=== PATIENT | male | born 1960 | race Caucasian/White ===

== ENCOUNTER 2022-08-04 00:15 | Inpatient (IN) | payer MEDICARE, OTHER ==
[~2022-08-04] VITALS: Ht 175.3 cm; Wt 102.1 kg
[2022-08-04] MEDS ORDERED: NOREPINEPHRINE BITARTRATE 8 MG in IV NORMAL SALINE 242 ML IV PRN (00:30)
[2022-08-04] MEDS ORDERED: PANTOPRAZOLE SODIUM 40 MG VIAL IV ONE (00:30)
[2022-08-04] MEDS ORDERED: IV NORMAL SALINE 500 ML BAG IV ONE (00:30)
[2022-08-04] MEDS ORDERED: PANTOPRAZOLE SODIUM IV 80 MG in IV DEXTROSE 5% 100 ML IV ONE (00:30)
[2022-08-04 00:57] LABS: HEMATOCRIT 28.6 % (36.7-47.1); MEAN CORPUSCULAR HEMOGLOBIN 31.7 uug (23.8-33.4); MEAN CORPUSCULAR VOLUME 94.3 fL (73.0-96.2); PLATELET COUNT (AUTO) 250 K/uL (152-348)
[2022-08-04 01:08] LABS: ETHANOL < 3 MG/DL (0-0)
[2022-08-04] MEDS ORDERED: PANTOPRAZOLE SODIUM 40 MG VIAL ONE ×2 (01:12→01:47)
[2022-08-04] MEDS ORDERED: NOREPINEPHRINE BITARTRATE 4 MG/4 ML VIAL IV ONE (01:13)
[2022-08-04 01:15] LABS: ALANINE AMINOTRANSFERASE 29 U/L (16-63); ALKALINE PHOSPHATASE 56 U/L (50-136); ASPARTATE AMINOTRANSFERASE 20 U/L (15-37); BILIRUBIN,DIRECT 0.1 mg/dL (0.0-0.2); BILIRUBIN,TOTAL 0.4 mg/dL (0.2-1.0); CARBON DIOXIDE 27 mmol/L (21-32); CHLORIDE 101 mmol/L (98-107); GLUCOSE 205 mg/dL (74-106); POTASSIUM 4.3 mmol/L (3.5-5.1); TOTAL PROTEIN, SERUM 5.9 g/dL (6.4-8.2); UREA NITROGEN, BLOOD 60 mg/dL (7-18)
[2022-08-04 01:19] LABS: CREATININE 8.2 mg/dL (0.6-1.3)
--- NOTE | 2022-08-04 01:19 | NUR ---
[phone] - Katlin - son , [phone] - Cori -
[2022-08-04 01:48] LABS: *OCCULT BLOOD STOOL POSITIVE (NEGATIVE)
[2022-08-04] MEDS ORDERED: ASPI81TA31 PO (01:48)
[2022-08-04] MEDS ORDERED: HYDR-4075 PO (01:48)
[2022-08-04] MEDS ORDERED: CARV3.122 PO (01:48)
[2022-08-04] MEDS ORDERED: PREG50CA PO (01:48)
[2022-08-04] MEDS ORDERED: GLIM1TAB18 PO (01:48)
[2022-08-04] MEDS ORDERED: ATOR10TA PO (01:48)
[2022-08-04] MEDS ORDERED: ACAR25TA2 PO (01:48)
--- NOTE | 2022-08-04 01:58 | NUR ---
Levo drip on hold. BP: 106/60
[2022-08-04] MEDS ORDERED: LINEZOLID 600 MG/300 ML PIGGYBACK IV ONE (02:13)
[2022-08-04] MEDS ORDERED: NEOMY/BACITRA/POLYMYXIN B OINT UD PACKET TP ONE (02:15)
[2022-08-04] MEDS ORDERED: LINEZOLID IV 600 MG in PREMIXED 1 EACH IV ONE (02:15)
--- NOTE | 2022-08-04 02:20 | NUR ---
Wound care done
--- NOTE | 2022-08-04 02:23 | NUR ---
Called [facility] for panal call. Dr. Shelley Ortega oncology coordinator.
--- NOTE | 2022-08-04 02:40 | NUR ---
Patient has been accepted by Shelley Ortega NP
[2022-08-04] MEDS ORDERED: IV NORMAL SALINE 500 ML IV ONE (02:45)
--- NOTE | 2022-08-04 02:45 | NUR ---
Called for bed. Patient will be transfered to [facility] room 314
--- NOTE | 2022-08-04 02:49 | NUR ---
Levo drip on hold BP: 119/55, HR: 88
--- NOTE | 2022-08-04 02:53 | NUR ---
Called patient's son Katlin, made aware that patient will be admitted
[2022-08-04] MEDS ORDERED: ACETAMINOPHEN 325 MG TABLET PO PRN (03:00)
[2022-08-04] MEDS ORDERED: ONDANSETRON 4 MG/2 ML VIAL IV PRN (03:00)
--- NOTE | 2022-08-04 03:08 | NUR ---
Called 3rd floor to give report. spoke with Vanita RHODESsupercharger mechanic nurse, Brandt RHODES will call back
--- NOTE | 2022-08-04 03:16 | NUR ---
report given to Brandt RHODES
[2022-08-04 03:35] VITALS: BP 97/55
--- NOTE | 2022-08-04 03:46 | NUR ---
Pt. admitted to [facility] ROOM 314 , under care of Shannon CYBER THREAT ANALYST [employer] List completed Brandt RN aware of patient's arrival
[2022-08-04 05:44] LABS: HEMATOCRIT 25.1 % (36.7-47.1); MEAN CORPUSCULAR HEMOGLOBIN 31.8 uug (23.8-33.4); MEAN CORPUSCULAR VOLUME 93.7 fL (73.0-96.2); PLATELET COUNT (AUTO) 219 K/uL (152-348)
[2022-08-04 06:04] LABS: BILIRUBIN,TOTAL 0.3 mg/dL (0.2-1.0); MAGNESIUM 2.1 mg/dL (1.8-2.4); POTASSIUM 4.1 mmol/L (3.5-5.1); TOTAL PROTEIN, SERUM 5.5 g/dL (6.4-8.2)
[2022-08-04 06:09] LABS: CREATININE 8.1 mg/dL (0.6-1.3)
[2022-08-04 06:12] LABS: THYROID STIMULATING HORMONE 1.323 mIU/mL (0.358-3.740)
[2022-08-04 07:34] VITALS: BP 94/51
[2022-08-04] MEDS: PANTOPRAZOLE SODIUM 40 MG VIAL IV SCH ×2 (08:17→21:08)
--- NOTE | 2022-08-04 10:43 | NUR ---
WOUND CARE CONSULT: PT PRESENTS WITH SURGICAL WOUNDS TO RT FOOT AND OPEN WOUND TO LEFT GREAT TOE, PRESENT ON ADMISSION. DR MAGDALENO CALLED FOR DPM CONSULT. DISCUSSED SKIN PROTECTION WITH NURSING STAFF. IN AGREEMENT WITH PLAN OF CARE. Addendum: 08/04/22 at 1046 by KELSEY DOMÍNGUEZ RN THERE ARE DARK RED/PURPLE SPOTS ON LOWER EXTREMITIES AND ON RT HAND, PRESENT ON ADMISSION, UNKNOWN ETIOLOGY. RN TO DISCUSS WITH PMD.
[2022-08-04] MEDS ORDERED: CARV25TA2 PO (11:48)
[2022-08-04] MEDS ORDERED: PANT40TA49 PO (11:48)
[2022-08-04] MEDS ORDERED: ATOR20TA PO (11:48)
[2022-08-04] MEDS ORDERED: ERGO500040 PO (11:48)
[2022-08-04] MEDS ORDERED: GLIM4TAB37 PO (11:48)
[2022-08-04] MEDS ORDERED: HYDR-4077 PO (11:48)
[2022-08-04] MEDS ORDERED: ACAR25TA PO (11:50)
[2022-08-04 11:57] VITALS: BP 117/54
[2022-08-04] MEDS ORDERED: DEXTROSE 50% 50 ML DISP.SYRIN IV PRN (12:00)
[2022-08-04] MEDS: BLOOD SUGAR DIAGNOSTIC 1 EACH STRIP VI SCH ×3 (12:00→21:09)
[2022-08-04] MEDS: LINEZOLID IV 600 MG in PREMIXED 1 EACH IV SCH ×2 (12:00→13:46)
--- NOTE | 2022-08-04 14:00 | NUR ---
Patient is refusing ATB. made aware, changed order to Vanco. Per patient, he is getting it every after dialysis. dialysis schedule is . Followed up with Nephro consult, per MD, he will see patient today.
[2022-08-04 15:57] VITALS: BP 115/56
--- NOTE | 2022-08-04 19:17 | NUR ---
Pt. stayed stable during the shift and no significant changes noted. Family visit noted.
[2022-08-04 20:00] VITALS: BP 127/58
[2022-08-04] MEDS: INSULIN REGULAR, HUMAN 300 UNIT/3 ML VIAL SQ PRN (21:09)
[2022-08-04] MEDS ORDERED: SIMETHICONE 80 MG TAB.CHEW PO PRN (23:45)
[2022-08-04] MEDS ORDERED: LIDOCAINE/PRILOCAINE 5 GM CREAM.GM. TP ONE (23:45)
[2022-08-05] VITALS: BP 123/67
[2022-08-05] MEDS: VANCOMYCIN IV 500 MG in IV DEXTROSE 5% 100 ML IV PRN (00:57)
[2022-08-05] MEDS: HYDROCODONE/APAP 10-325 MG TABLET PO PRN (03:40)
[2022-08-05 04:00] VITALS: BP 97/62
--- NOTE | 2022-08-05 06:21 | NUR ---
pt rested well in between care; pt c/o pain and medicated with Strang; pt had dialysis and 2 liters out; continue to monitor; continue plan of care.
[2022-08-05 07:35] VITALS: BP 92/42
[2022-08-05 07:50] LABS: HEMATOCRIT 24.7 % (36.7-47.1); MEAN CORPUSCULAR HEMOGLOBIN 32.3 uug (23.8-33.4); MEAN CORPUSCULAR VOLUME 93.7 fL (73.0-96.2); PLATELET COUNT (AUTO) 190 K/uL (152-348)
[2022-08-05] MEDS: PANTOPRAZOLE SODIUM 40 MG VIAL IV SCH ×2 (08:09→20:30)
[2022-08-05] MEDS: BLOOD SUGAR DIAGNOSTIC 1 EACH STRIP VI SCH ×4 (08:11→21:02)
[2022-08-05 08:16] LABS: CREATININE 6.7 mg/dL (0.6-1.3); MAGNESIUM 1.9 mg/dL (1.8-2.4); PHOSPHOROUS 4.3 mg/dL (2.5-4.9); POTASSIUM 3.5 mmol/L (3.5-5.1)
--- NOTE | 2022-08-05 09:10 | NUR ---
Patient wanting to be transferred to [facility] because patient states his case is better known there. Will relay information to patient case manager and doctor.
--- NOTE | 2022-08-05 09:57 | NUR ---
Patient's blood pressure at 60/33 after doing Orthostatic. Notified Dr. Solano. IV hydration provided. Will recheck patient's vitals.
--- NOTE | 2022-08-05 10:15 | NUR ---
Patient to be transferred to [facility] awaiting bed availability.
[2022-08-05 11:35] VITALS: BP 104/56
[2022-08-05 15:16] LABS: *BILIRUBIN,URIN 1+ (NEGATIVE); *BLOOD, URINE 3+ (NEGATIVE); *CLARITY,URINE CLEAR (CLEAR); *COLOR,URINE YELLOW (YELLOW); *KETONES,URINE TRACE (NEGATIVE); *UROBILINOGEN,URINE 0.2 E.U./dl (NORMAL); LEUKOCYTE ESTERASE ,URINE 1+ (NEGATIVE); NITRITE, URINE NEGATIVE (NEGATIVE); UGLUCOSE NEGATIVE (NEGATIVE)
[2022-08-05 15:41] VITALS: BP 94/48
--- NOTE | 2022-08-05 17:08 | NUR ---
Patient no longer to be transferred. [facility] EVS MANAGER spoke to patient's doctor and agreed to have patient stay. Patient to have skin biopsy performed tomorrow morning.
[2022-08-05] MEDS: CHOLESTYRAMINE/SUCROSE 4 GM PACKET PO SCH ×3 (17:11→21:00)
--- NOTE | 2022-08-05 17:50 | NUR ---
Patient downgraded to Tele status.
[2022-08-05] MEDS ORDERED: DIPHENOXYLATE HCL/ATROP SULF TABLET PO PRN (18:15)
[2022-08-05 20:00] VITALS: BP 121/67
[2022-08-05] MEDS: INSULIN REGULAR, HUMAN 300 UNIT/3 ML VIAL SQ PRN (21:02)
[2022-08-05 22:55] LABS: RBC,URINE TNTC /HPF (0-3)
[2022-08-05 22:56] LABS: BACTERIA,URINE FEW /HPF (NONE SEEN); COARSE GRANULAR CASTS,URINE FEW /LPF; SQUAMOUS EPITHELIAL CELL,UR MANY /HPF (NONE SEEN)
[2022-08-06] VITALS: BP 118/68
[2022-08-06 04:00] VITALS: BP 95/45
[2022-08-06 06:07] LABS: HEPATITIS B SURFACE AG Negative (Negative)
[2022-08-06] MEDS: BLOOD SUGAR DIAGNOSTIC 1 EACH STRIP VI SCH ×4 (07:11→20:51)
--- NOTE | 2022-08-06 07:30 | NUR ---
Received pt. alert and oriented. Resting in bed. No c/o nausea and vomiting. Orthostatic blood pressure WNL. SR on monitor. Addendum: 08/06/22 at 1447 by OUMOU HAYES RN Error
[2022-08-06 07:34] LABS: MAGNESIUM 1.8 mg/dL (1.8-2.4); POTASSIUM 3.8 mmol/L (3.5-5.1)
--- NOTE | 2022-08-06 08:00 | NUR ---
RECEIVED PATIENT IN BED AWAKE ALERT AND ORIENTED X3, DENIES CHEST PAIN OR RESPIRATORY DISTRESS. AWAITING HEMODIALYSIS
[2022-08-06 09:06] LABS: CREATININE 7.8 mg/dL (0.6-1.3)
[2022-08-06] MEDS: PANTOPRAZOLE SODIUM 40 MG VIAL IV SCH ×2 (09:17→20:42)
[2022-08-06] MEDS: CHOLESTYRAMINE/SUCROSE 4 GM PACKET PO SCH ×2 (09:23→21:03)
[2022-08-06 09:39] LABS: HEMATOCRIT 26.5 % (36.7-47.1); MEAN CORPUSCULAR HEMOGLOBIN 33.2 uug (23.8-33.4); MEAN CORPUSCULAR VOLUME 94.7 fL (73.0-96.2); PLATELET COUNT (AUTO) 245 K/uL (152-348)
--- NOTE | 2022-08-06 10:00 | NUR ---
Seen by hospitalist and plan to discharge home and follow up with PC Addendum: 08/06/22 at 1450 by OUMOU HAYES RN Error
--- NOTE | 2022-08-06 10:30 | NUR ---
HOSPITALIST DARIO SAUER IN AND DID SKIN BIOPSY LEFT INNER THIGH AND SENT FOR CYTOLOGY
[2022-08-06 11:36] VITALS: BP 115/68
--- NOTE | 2022-08-06 14:00 | NUR ---
HEMODIALYSIS STARTED AT BEDSIDE. CLOSELY MONITORED
[2022-08-06] MEDS ORDERED: LIDOCAINE/PRILOCAINE 5 GM CREAM.GM. TP ONE (14:30)
--- NOTE | 2022-08-06 14:43 | NUR ---
pt. was discharged home and noted to be stable upon the discharge. Will follow up with Primary care in one to two weeks. Addendum: 08/06/22 at 1449 by OUMOU HAYES RN Error
[2022-08-06] MEDS: THERAHONEY GEL 1.5 OZ TUBE TOP SCH (15:36)
[2022-08-06 15:46] VITALS: BP 95/56
[2022-08-06] MEDS ORDERED: VANCOMYCIN IV 500 MG in IV DEXTROSE 5% 100 ML IV ONE (16:00)
--- NOTE | 2022-08-06 16:23 | NUR ---
TOLERATING HD FAIRLY WELL, ST 118 ON MONITOR. VANCOMYCIN IV GIVEN WITH HD
--- NOTE | 2022-08-06 17:25 | NUR ---
HEMODIALYSIS COMPLETED REMOVED 1.5 L OF FLUID
[2022-08-06] MEDS: VANCOMYCIN IV 500 MG in IV DEXTROSE 5% 100 ML IV PRN (17:30)
[2022-08-06] MEDS ORDERED: VANCOMYCIN IV 1,000 MG in IV DEXTROSE 5% 250 ML IV ONE (18:00)
[2022-08-06 20:00] VITALS: BP 111/61
[2022-08-07] MEDS: HYDROCODONE/APAP 10-325 MG TABLET PO PRN (01:29)
[2022-08-07 01:30] VITALS: BP 109/63
[2022-08-07] MEDS: BLOOD SUGAR DIAGNOSTIC 1 EACH STRIP VI SCH ×2 (06:40→11:56)
--- NOTE | 2022-08-07 06:55 | NUR ---
PATIENT RESTED INTERMITTENTLY IN THE CHAIR AND BED THROUGHOUT THE NIGHT. NO DISTRESS NOTED AT THIS TIME. ON ROOM AIR. SR ON TELE MONITOR, HR 100. RIGHT AC INTACT AND PATENT. NO SIGNS OF DIABETIC CRISIS NOTED. ADMINISTERED PAIN MEDICATION AT 0130. PAIN GOAL MET. SAFETY AND COMFORT MEASURE MAINTAINED.
[2022-08-07 07:06] LABS: COMPLEMENT, C3 SERUM 115 mg/dL (82-167); COMPLEMENT, C4 SERUM 30 mg/dL (12-38)
--- NOTE | 2022-08-07 07:20 | NUR ---
RESTING COMFORTABLY IN BED NO SS OF PAIN OR DISTRESS ON RA. ST ON MONITOR 105. CONTINUE TELE MONITORING/GOING HOME
[2022-08-07 08:06] LABS: *ANTI-SCLERODERMA-70 AB <0.2 AI (0.0-0.9); *SJOGREN'S ANTI-SS-A <0.2 AI (0.0-0.9); *SJOGREN'S ANTI-SS-B <0.2 AI (0.0-0.9); *SMITH ANTIBODIES <0.2 AI (0.0-0.9); ANTI-DNA(DS) AB, QN <1 IU/mL (0-9)
[2022-08-07] MEDS: PANTOPRAZOLE SODIUM 40 MG VIAL IV SCH (08:25)
[2022-08-07] MEDS: CHOLESTYRAMINE/SUCROSE 4 GM PACKET PO SCH (08:25)
[2022-08-07] MEDS: THERAHONEY GEL 1.5 OZ TUBE TOP SCH (08:25)
[2022-08-07 09:13] LABS: HEMATOCRIT 28.5 % (36.7-47.1); MEAN CORPUSCULAR HEMOGLOBIN 32.1 uug (23.8-33.4); PLATELET COUNT (AUTO) 278 K/uL (152-348)
[2022-08-07 09:57] LABS: CREATININE 7.1 mg/dL (0.6-1.3); MAGNESIUM 2.1 mg/dL (1.8-2.4); POTASSIUM 3.4 mmol/L (3.5-5.1)
[2022-08-07 10:34] LABS: PHOSPHOROUS 6.1 mg/dL (2.5-4.9)
[2022-08-07 11:28] VITALS: BP 103/62
--- NOTE | 2022-08-07 11:56 | NUR ---
blood sugar 136 via finger stick, refused sliding scale
--- NOTE | 2022-08-07 12:56 | NUR ---
HOSPITALIST DR SAUER IN [facility] AWARE OF MRSA LEFT FOOT AND PATIENT WANTS TO GO HOME.
[2022-08-07] MEDS ORDERED: CARVEDILOL 25 MG TABLET PO SCH (13:15)
[2022-08-07 13:46] VITALS: BP 103/62
--- NOTE | 2022-08-07 14:54 | NUR ---
DR SAUER NOTIFIED AND SAID PATIENT OKAY TO GO AND FOLLOW-UP OWN PHARMACIST FOR HOME MEDICATIONS. PATIENT REFUSED PICTURE TAKING AND DRESSING CHANGED OF WOUND. "DOCTOR CHANGED DRESSING YESTERDAY AND MY NURSE WILL SEE ME TOMORROW" DISCHARGE FOLLOW-UP INSTRUCTION GIVEN
[2022-08-07] MEDS ORDERED: PANTOPRAZOLE SODIUM 40 MG TABLET.DR PO SCH (17:00)
[2022-08-07] MEDS ORDERED: VANC500F2 IV (17:27)
[2022-08-07] MEDS ORDERED: ACARBOSE 50 MG TABLET PO SCH (18:00)
[2022-08-07] MEDS ORDERED: [UNRECOGNIZED DRUG - OTHER] PO SCH (18:00)
[2022-08-07] MEDS ORDERED: ACARBOSE 25 MG PO SCH (18:00)
--- NOTE | 2022-08-07 18:08 | NUR ---
FOLLOWED-UP PATIENT REGARDING DISCHARGED MEDICATION AND VANCOMYCIN TO BE GIVEN ON DIALYSIS DAY. PATIENT ABLE TO FOLLOW INSTRUCTION.
[2022-08-07] MEDS ORDERED: ATORVASTATIN 20 MG TABLET PO SCH (21:00)
[2022-08-07] MEDS ORDERED: hydrALAZINE HCL 50 MG TABLET PO SCH (21:00)
[2022-08-08] MEDS ORDERED: PANTOPRAZOLE SODIUM 40 MG TABLET.DR PO SCH (07:00)
[2022-08-08] MEDS ORDERED: GLIMEPIRIDE 4 MG TABLET PO SCH (08:00)
[2022-08-08] MEDS ORDERED: ASPIRIN EC 81 MG TABLET.DR PO SCH (09:00)
== END 2022-08-07 15:00 | disposition home or self-care (01) | DRG 871 ==
LOC: ER 00:20 → TELE-TD3 02:40 → TELE3 08-05 17:06
PROVIDERS: ADMIT Nurse Practitioner Acute Care; ATTEND Nurse Practitioner Acute Care
PROC: 5A1D70Z Performance of Urinary Filtration, Intermittent, Less than 6 Hours Per Day (ICD-10-PCS; 2022-08-04)
PROC: 0HBHXZX Excision of Right Upper Leg Skin, External Approach, Diagnostic (ICD-10-PCS; principal; 2022-08-06)
PROC: 0HBJXZZ Excision of Left Upper Leg Skin, External Approach (ICD-10-PCS; 2022-08-06)
DX: A41.9 Sepsis, unspecified organism (principal); I50.31 Acute diastolic (congestive) heart failure; N18.6 End stage renal disease; K92.2 Gastrointestinal hemorrhage, unspecified; D62 Acute posthemorrhagic anemia; N39.0 Urinary tract infection, site not specified; M86.8X7 Other osteomyelitis, ankle and foot; E11.22 Type 2 diabetes mellitus with diabetic chronic kidney disease; Z99.2 Dependence on renal dialysis; Z79.84 Long term (current) use of oral hypoglycemic drugs; I25.10 Atherosclerotic heart disease of native coronary artery without angina pectoris; Z95.5 Presence of coronary angioplasty implant and graft; E88.09 Other disorders of plasma-protein metabolism, not elsewhere classified; Z20.822 Contact with and (suspected) exposure to COVID-19; E11.621 Type 2 diabetes mellitus with foot ulcer; L97.519 Non-pressure chronic ulcer of other part of right foot with unspecified severity; L97.529 Non-pressure chronic ulcer of other part of left foot with unspecified severity; E11.69 Type 2 diabetes mellitus with other specified complication; Z68.33 Body mass index [BMI] 33.0-33.9, adult; I77.6 Arteritis, unspecified; E11.40 Type 2 diabetes mellitus with diabetic neuropathy, unspecified; B95.62 Methicillin resistant Staphylococcus aureus infection as the cause of diseases classified elsewhere; I35.0 Nonrheumatic aortic (valve) stenosis; L91.8 Other hypertrophic disorders of the skin; S91.302A Unspecified open wound, left foot, initial encounter; X58.XXXA Exposure to other specified factors, initial encounter; Y93.9 Activity, unspecified; Y92.009 Unspecified place in unspecified non-institutional (private) residence as the place of occurrence of the external cause
CPT/HCPCS: 36415; 36556; 71045; 83605; 83735; 84100; 84443; 84484; 85025; 85730; 86038; 86160; 86706; 86850; 86900; 86901; 87040; 87070; 87077; 87086; 87340; 90937; 93005; 93307; A4663; A6209; C9113; G0378; G0480; J1815; J2020; J3370; J3490; J7040; J7050

== ENCOUNTER 2022-09-02 12:48 | Emergency (ER) | payer MEDICARE, OTHER ==
[~2022-09-02] VITALS: Ht 175.3 cm; Wt 104.3 kg
[~2022-09-02 12:48] MED LIST: ACAR25TA PO; ASPI81TA31 PO; ATOR20TA PO; CARV25TA2 PO; ERGO500040 PO; GLIM4TAB37 PO; HYDR-4077 PO; PANT40TA49 PO; VANC500F2 IV
[2022-09-02] MEDS ORDERED: NEOMY/BACITRAC/POLYMI OINT 28.35 GM TUBE ONE (13:26)
--- NOTE | 2022-09-02 13:37 | NUR ---
Patient discharged to home in stable condition. Written and verbal after care instructions given. Patient verbalizes understanding of instructions. Stressed follow up or return to ER for worsening s/s.
[2022-09-02 13:39] VITALS: BP 133/67
[2022-09-02] MEDS ORDERED: NEOMY/BACITRA/POLYMYXIN B OINT UD PACKET TP ONE (13:45)
== END 2022-09-02 13:44 | disposition home or self-care (01) ==
LOC: ER 12:48
DX: Z48.02 Encounter for removal of sutures (principal); E11.22 Type 2 diabetes mellitus with diabetic chronic kidney disease; N18.6 End stage renal disease; Z99.2 Dependence on renal dialysis; Z79.84 Long term (current) use of oral hypoglycemic drugs; Z95.1 Presence of aortocoronary bypass graft; I25.10 Atherosclerotic heart disease of native coronary artery without angina pectoris; Z95.5 Presence of coronary angioplasty implant and graft; E66.9 Obesity, unspecified; Z68.34 Body mass index [BMI] 34.0-34.9, adult; Z88.0 Allergy status to penicillin
CPT/HCPCS: A4663